=== PATIENT | male | born 2005 | race Caucasian/White ===

== ENCOUNTER 2025-06-18 18:34 | Emergency (ER) | payer BC, SELFPAY ==
[2025-06-18 18:37] VITALS: BP 119/87
--- NOTE | 2025-06-18 19:23 | ED.GENMED ---
History of Present Illness
General
Chief Complaint: Crisis Evaluation
Source: patient
Exam Limitations: none
Time Seen by Provider: 06/18/25 19:20
History of Present Illness
History of Present Illness:
See MDM
Past History
Past History
ED Past Medical History: Psychiatric
ED Past Surgical History: None
Social History
Tobacco: Non-smoker
Alcohol: None
Phy Exam
Physical Exam
Physical Exam:
See MDM
Course
Orders/Labs/Results
Orders:
Orders
06/18/25 18:57
1:1 Observation - Suicide/ Violent Behavior As Directed
Crisis Consult Urgent
Reason for Consult: suidical ideation
06/18/25 19:23
Complete Blood Count/With Diff Urgent
Comprehensive Metabolic Panel Urgent
Urine Drug Abuse Screen Urgent
Vital Signs
Initial and Last Documented VS:
Initial Vital Signs
Temp Pulse Resp BP Pulse Ox
98.9 F 100 14 119/87 99
06/18/25 18:37 06/18/25 18:37 06/18/25 18:37 06/18/25 18:37 06/18/25 18:37
Last Documented Vital Signs
Temp Pulse Resp BP Pulse Ox
98.9 F 100 14 119/87 99
06/18/25 18:37 06/18/25 18:37 06/18/25 18:37 06/18/25 18:37 06/18/25 18:37
MDM/Problems Addressed
Differential Diagnosis Includes:
Note:
CHIEF COMPLAINT(S)
Suicidal thoughts and planning related to mental health issues.
HISTORY OF PRESENT ILLNESS
The patient is a 19-year-old male with a long-standing history of mental health issues. He has been hospitalized multiple times for similar concerns in the past. Currently, the patient is experiencing persistent suicidal thoughts and has a specific
plan indicating a need for psychiatric intervention. Crisis intervention services are present at the bedside to perform an assessment and facilitate admission into inpatient psychiatric care.
PHYSICAL EXAM
General: Alert, no acute distress.
Skin: Warm, dry.
Head: Normocephalic, atraumatic
Neck: Appears supple, trachea midline.
Eyes, Ears, Nose, Mouth, and Throat: Moist mucous membranes
Cardiovascular: No signs of cyanosis
Respiratory: Respirations are non-labored.
Abdomen: Non-distended
Musculoskeletal: No deformities
Neurological: No focal neurological deficit observed.
Psychiatric: Cooperative, appropriate mood and affect.
PAST MEDICAL AND SURGICAL HISTORY
The patient has a long-standing history of mental health issues.
CHRONIC MEDICAL CONDITIONS SIGNIFICANTLY AFFECTING CARE
Chronic conditions affecting care: Mental health issues.
SUMMARY OF ENCOUNTER
The patient was seen in the emergency department due to an escalating mental health crisis, characterized by subtle thoughts with a detailed plan suggesting the potential for self-harm. The presence of crisis services was requested to ensure the
patient is safely assessed and transferred to an appropriate inpatient psychiatric facility for further care.
DISPOSITION
Admit to inpatient psychiatric care.
MEDICAL DECISION MAKING
-Complexity of Data Reviewed: Chronic conditions affecting care include a history of mental health issues with multiple hospitalizations.
DIAGNOSIS
F32.9 - Major depressive disorder, single episode, unspecified.
Z91.5 - Personal history of self-harm.
*Pulse Oximetry
SaO2: 99
Oxygen Mode of Delivery: Room air
ED Attending Note
-
Portions of this chart may have been created with voice recognition software.� Occasional wrong word or��sound alike� substitutions may have occurred due to the inherent limitations of voice recognition software.
Discharge Plan
Interventions
Interventions:
*Risk Screen - Suicide Last Done: 06/18/25 18:47
*General Assessment Last Done: 06/18/25 18:47
*Neglect/Abuse Screening Last Done: 06/18/25 18:47
*ED- Fall Risk Assessment Last Done: 06/18/25 18:47
*ED COVID-19 Vaccine History Last Done: 06/18/25 18:47
*ED Influenza Vaccine History Last Done: 06/18/25 18:47
ED-Psychological Assessment Last Done: 06/18/25 18:47
Discharge Date and Time
Print Language: TAJIK
[2025-06-18 20:05] LABS: Hematocrit 37.7 % (39.0-52.0); Hemoglobin 13.1 g/dL (13.0-18.0); Mean Corp Hgb Conc. 34.7 g/dL (33.0-37.0); Mean Corpuscular Volume 85.9 fL (80.0-94.0); Nucleated Red Blood Cells % 0 % (-); Platelet Count 314 10^3/uL (130-400); Red Cell Dist. Width 12.4 % (11.5-14.5)
[2025-06-18 20:26] LABS: ALT (SGPT) 10 U/L (0-50); AST (SGOT) 21 U/L (17-59); Albumin 4.5 g/dl (3.5-5.0); Alkaline Phosphatase 52 U/L (38-126); Blood Urea Nitrogen 20 mg/dl (9-20); Calcium 9.8 mg/dl (8.4-10.2); Carbon Dioxide 28 mmol/L (22-30); Chloride 102 mmol/L (98-107); Estimated Creatinine Clearance 118 ml/min; Glucose 93 mg/dl (70-99); Potassium 4.8 mmol/L (3.5-5.1); Sodium 135 mmol/L (135-145); Total Protein 7.4 g/dl (6.3-8.2); eGFR > 60.00
== END 2025-06-18 23:12 ==
LOC: EMR 18:34
PROVIDERS: EMERGENCY PHYSICIAN Student in an Organized Health Care Education/Training Program
DX: F32.A Depression, unspecified (principal); R45.851 Suicidal ideations
CPT/HCPCS: 99285; 80053; 80306; 85025

== ENCOUNTER 2025-07-16 15:41 | Emergency (ER) | payer BC, SELFPAY ==
[2025-07-16 15:49] VITALS: BP 112/79
--- NOTE | 2025-07-16 17:27 | ED.GENMED ---
History of Present Illness
General
Chief Complaint: Crisis Evaluation
Source: patient
Exam Limitations: none
Time Seen by Provider: 07/16/25 16:51
Nursing documentation reviewed up to this point in time: agreed with
History of Present Illness
History of Present Illness:
19-year-old male from residential partial program presents stating he wants to leave that program but they told him that he has been medically and psychiatrically cleared for so he came here. Emilia from crisis states he is cleared to go back to his
facility.
Past History
Past History
ED Past Medical History: Psychiatric (Bipolar, anxiety/depression, previous SI and suicide attempt.)
ED Past Surgical History: None
Social History
Tobacco: Non-smoker
Alcohol: None
Personal: Single
Review of Systems
Review of Systems
Allergies reviewed?: Yes
All Other Systems: ROS reviewed and negative except as documented in HPI and ROS
Psychiatric: Denies suicidal
Phy Exam
Physical Exam
Physical Exam:
GENERAL: No acute distress. A&Ox3.
CONSTITUTIONAL: Afebrile.
EYES: clear, conjunctivae normal
ENMT: moist mucus membranes, Pharynx nl
RESPIRATORY: Regular respirations, nonlabored, lungs clear.
CARDIOVASCULAR: Regular rate and rhythm, no murmurs, no rubs.
GI: Soft, nontender, normal BS
MUSCULOSKELETAL: Moves with ease. Well perfused.
SKIN: Warm, dry, pink
PSYCH: Normal mood and affect. Well kept, interactive and appropriate
NEUROLOGIC: Awake, alert and oriented. No focal neurological deficits
Course
Orders/Labs/Results
Orders:
Orders
07/16/25 15:48
1:1 Observation - Suicide/ Violent Behavior As Directed
Crisis Consult Urgent
Reason for Consult: hx si/attempt
Vital Signs
Initial and Last Documented VS:
Initial Vital Signs
Temp Pulse Resp Pulse Ox
98.0 F 79 18 100
07/16/25 15:44 07/16/25 15:44 07/16/25 15:44 07/16/25 15:44
Last Documented Vital Signs
Temp Pulse Resp BP Pulse Ox
98.0 F 79 18 112/79 100
07/16/25 15:44 07/16/25 15:44 07/16/25 15:44 07/16/25 15:49 07/16/25 17:30
MDM/Problems Addressed
MDM/Problems Addressed:
19-year-old male from residential partial program presents stating he wants to leave that program but they told him that he has been medically and psychiatrically cleared for so he came here. Fred from crisis states he is cleared to go back to his
facility.
From my vantage point he is medically cleared to go back.
*Pulse Oximetry
SaO2: 100
Oxygen Mode of Delivery: Room air
Patient hypoxic: not evaluated
*Critical Care Note
Total Time (30-74mins, 75-104mins- exclusive of procedures): Not Applicable
ED Attending Note
-
Portions of this chart may have been created with voice recognition software.� Occasional wrong word or��sound alike� substitutions may have occurred due to the inherent limitations of voice recognition software.
Discharge Plan
Departure
Patient Disposition: Home (Routine Discharge)
Date of Disposition: 07/16/25
Time of Disposition: 17:28
Patient with high blood pressure during this ER visit?: No
Condition: Good
Discharge Problem:
Normal physical exam, General psychiatric examination requested by authority
Activity Restrictions/Additional Instructions:
Patient is medically and psychiatrically cleared.
Interventions
Interventions:
*General Assessment Last Done: 07/16/25 15:44
*Neglect/Abuse Screening Last Done: 07/16/25 15:44
*ED COVID-19 Vaccine History Last Done: 07/16/25 16:23
*ED Influenza Vaccine History Last Done: 07/16/25 16:23
[facility] Risk Assessment Tool Last Done: 07/16/25 16:22
*Risk Screen - Suicide (C-SSRS) Last Done: 07/16/25 15:44
*Nursing Disposition Last Done: 07/16/25 17:39
ED-Psychological Assessment Last Done: 07/16/25 16:23
Discharge Date and Time
Discharge Date/Time: 07/16/25 17:40
Print Language: LATVIAN
== END 2025-07-16 17:40 | disposition home or self-care (01) ==
LOC: EMR 15:41
PROVIDERS: EMERGENCY PHYSICIAN Student in an Organized Health Care Education/Training Program
DX: Z00.8 Encounter for other general examination (principal)
CPT/HCPCS: 99281